=== PATIENT | male | born 1980 | race Caucasian/White ===

== ENCOUNTER 2019-05-02 23:46 | Emergency (ER) | payer OTHER ==
[~2019-05-02] VITALS: Ht 193 cm; Wt 122.7 kg
[2019-05-02] MEDS ORDERED: INDOMETHACIN50 M2 PO (23:55)
[2019-05-03 00:53] VITALS: BP 147/98
== END 2019-05-03 00:53 | disposition home or self-care (01) ==
LOC: ED 23:46
DX: M25.561 Pain in right knee (principal); M10.9 Gout, unspecified; Z98.890 Other specified postprocedural states; Z88.2 Allergy status to sulfonamides
CPT/HCPCS: J2270